=== PATIENT | female | born 1940 | race Caucasian/White ===

== ENCOUNTER 2017-10-02 21:51 | Observation (INO) | payer MEDICARE, OTHER ==
[2017-10-02 22:59] LABS: Troponin I 0.025 ng/mL (< 0.028)
[2017-10-03 01:54] LABS: Troponin I 0.026 ng/mL (< 0.028)
[2017-10-03] MEDS ORDERED: Morphine 4 MG/ML VIAL ONE (02:04)
--- NOTE | 2017-10-03 03:23 | HP ---
DATE OF ADMISSION: 10/03/2017 ADMITTING PHYSICIAN: Dr. Sean Flanagan. PRIMARY CARE PHYSICIAN: Dr. Crenshaw. CHIEF COMPLAINT: Chest pain. HISTORY OF PRESENT ILLNESS: The patient is a 77-year-old female with history of symptomatic bradycar charles, who presents complaining of midsternal chest pain that radiates to her back and left neck and sh oulder. The patient reports that she had a pacemaker placed last Monday. She was treated with as pirin, Ativan, and morphine and the pain has subsided. She does report diaphoresis, but denies nause a and vomiting. REVIEW OF SYSTEMS: The following complete review of systems was negative, unless otherwise mentioned in the HPI or below: Constitutional: Weight loss or gain, sense of well-being, ability to conduct usual activities, exerc ise tolerance. Skin/Breast: Rash, itching, changes in hair growth or loss, nail changes, breast lumps, tenderness, swelling, nipple discharge. Eyes: Vision, double vision, tearing, blind spots, pain. ENT/Mouth: Headaches (location, time of onset, duration, precipitating factors), vertigo, lightheade dness, injury. Vision, double vision, tearing, blind spots, pain, nose bleeding, colds, obstruction, discharge, dental difficulties, gingival bleeding, dentures, neck stiffness, pain, tenderness, masses in thyroid or other areas. Cardiovascular: Precordial pain, substernal distress, palpitations, syncope, dyspnea on exertion, or thopnea, nocturnal paroxysmal dyspnea, edema, cyanosis, hypertension, heart murmurs, varicosities, ph lebitis, claudication. Respiratory: Pain, shortness of breath, wheezing, stridor, cough, hemoptysis, fever or night sweats. Gastrointestinal: Poor appetite, dysphagia, indigestion, abdominal pain, heartburn, eructation, naus ea, vomiting, hematemesis, jaundice, constipation, or diarrhea, abnormal stools (connor-colored, tarry, bloody, greasy, foul smelling), flatulence, hemorrhoids, recent changes in bowel habits. Genitourinary: Urgency, frequency, dysuria, nocturia, hematuria, polyuria, oliguria, unusual (or johnnie nge in) color of urine, stones, hesitancy, change in size of stream, dribbling, acute retention or in continence, libido, potency. Musculoskeletal: Pain, swelling, redness or heat of muscles or joints, limitation, of motion, muscul ar weakness, atrophy, cramps. Neurologic/Psychiatric: Convulsions, paralyses, tremor, incoordination, paresthesias, difficulties w ith memory of speech, sensory or motor disturbances, or muscular coordination (ataxia, tremor), emoti onal problems, anxiety, depression, previous psychiatric care, unusual perceptions, hallucinations. Allergy/Immunologic: Skin rash, anemia, bleeding tendency, polydipsia, polyuria, intolerance to heat or cold. PAST MEDICAL HISTORY: Hypertension and bradycardia. PAST SURGICAL HISTORY: Appendectomy, cholecystectomy, hysterectomy, mastectomy of the left breast, s zaid surgery, total hip replacement, right knee replacement, pacemaker placement. SOCIAL HISTORY: Denies alcohol or drugs. She does smoke. FAMILY HISTORY: Reviewed, positive for hypertension. HOME MEDICATIONS: Gabapentin 300 mg b.i.d., lisinopril 20 mg q. day. DRUG ALLERGIES: SULFA DRUGS. PHYSICAL EXAMINATION: VITAL SIGNS: Temperature of 99.4, pulse 67, blood pressure 129/54, satting 96% on 2 liters, breathin g 23 times per minute. GENERAL: She is in no acute distress, pleasant and cooperative. HEAD: Normocephalic, atraumatic. EYES: PERRL. Extraocular muscles are intact. No nystagmus. ENT: No nasal deformity. No external ear problems. NECK: Supple, full range of motion. Trachea is midline. CHEST: No rhonchi, no wheezing. Clear to auscultation. CARDIAC: Regular rate and rhythm. No gallops. She does have a systolic ejection murmur. ABDOMEN: Nontender, nondistended. Positive bowel sounds. EXTREMITIES: No clubbing, cyanosis or edema. LABORATORY DATA AND IMAGES: CK-MB of 1.9, troponin I of 0.025. Chem-7 and CBC are pending from our facility at this time. ASSESSMENT: 1. Chest pain, rule out an acute coronary syndrome. 2. Hypertension. 3. History of bradycardia with pacemaker placement. PLAN: The patient will be admitted to telemetry observation. We will continue to rule out for ACS b y biomarkers. In light of her history of a new pacemaker placement, we will have her assessed by Car diology. DVT prophylaxis with Lovenox. We will control her blood pressure with her home regimen and make adjustments accordingly.
[2017-10-03 04:40] LABS: #Eosinphils 0.1 thou/uL (0.0-0.7); #Lymphocytes 1.6 thou/uL (1.20-3.40); #Neutrophils 7.4 thou/uL (1.40-6.50); %Basophils 0.2 % (0.0-1.0); %Eosinophils 1.3 % (0.0-10.0); %Lymphocytes 15.4 % (21.0-51.0); %Monocytes 9.7 % (0.0-10.0); Hematocrit 42.6 % (36.0-47.0); Mean Platelet Volume 8.3 fL (7.4-10.4); Red Blood Cell (RBC) Count 4.73 mill/uL (4.20-5.40); White Blood Cell (WBC) Count 10.1 thou/uL (4.8-10.8)
[2017-10-03 04:57] LABS: Troponin I 0.024 ng/mL (< 0.028)
[2017-10-03 04:58] LABS: ALT (SGPT) 23 U/L (8-55); AST (SGOT) 18 U/L (5-34); Alkaline Phosphatase 38 U/L (40-150); Anion Gap 12 mmol/L (10-20); BUN (Urea Nitrogen) 17 mg/dL (9.8-20.1); Bilirubin, Total 0.7 mg/dL (0.2-1.2); Calc. Creatinine Clearance 0 mL/min (70-130); Carbon Dioxide 26 mmol/L (23-31); Chloride 104 mmol/L (98-107); Estimated GFR-MDRD 53; Globulin 2.4 g/dL (2.4-3.5); Protein, Total 6.4 g/dL (6.0-8.3)
[2017-10-03 05:45] LABS: Band 3 % (5-11); Hematocrit 41.9 % (36.0-47.0); Mean Platelet Volume 8.3 fL (7.4-10.4); Myelocyte 2 % (0-0); Neutrophil 69 % (42-75); Red Blood Cell (RBC) Count 4.65 mill/uL (4.20-5.40); White Blood Cell (WBC) Count 9.9 thou/uL (4.8-10.8)
[2017-10-03] MEDS ORDERED: Enoxaparin Sodium 40 MG/0.4 ML SYRINGE SC SCH (09:00)
[2017-10-03 13:03] VITALS: BMI 33.1
--- NOTE | 2017-10-03 15:27 | CON ---
DATE OF CONSULTATION: 10/03/2017 REASON FOR CONSULTATION: Chest pain, recent pacemaker insertion. HISTORY OF PRESENT ILLNESS: Chip is a 77-year-old woman. She recently presented for routine followu p with her oncologist and was found to have a heart rate in the 30s. She apparently was asymptomatic . She was sent to the hospital where she was found to have severe bradycardia. Dual-chamber pacemak er was placed last Monday according to the patient. The patient states she felt well following at until yesterday she had the onset of severe substernal pain that went straight through to her back . The pain was worse when she took a deep breath. The pain has been consistent since then, but hurt s worse when she tries to get a breath. She has never had pain like that before. She has not had an y previous significant chest pain. PAST MEDICAL HISTORY: She has a history of breast cancer many years ago, and had a left-sided mastec finn. She was going for routine followup recently when she was found to have a low heart rate. Jennifer ent is currently still having some chest pain when she takes a breath. REVIEW OF SYSTEMS: Constitutional: No significant weight gain or loss. Vision: No changes. Heari ng: No changes. Pulmonary: No cough or wheezing. Gastrointestinal: No nausea, vomiting, diarrhea . Skin: No rashes. Neurologic: No unilateral weakness or numbness. Psychiatric: No unusual depr ession or anxiety. Hematologic: No unusual bruising. Genitourinary: No burning with urination. M usculoskeletal: No unusual joint pains. PAST MEDICAL HISTORY: Breast cancer in the remote past as mentioned. PAST SURGICAL HISTORY: Mastectomy, left breast. SOCIAL HISTORY: No alcohol. She does smoke. FAMILY HISTORY: Positive for hypertension. MEDICATIONS: Gabapentin and lisinopril. ALLERGIES: SULFA. PHYSICAL EXAMINATION: GENERAL: This is a pleasant 77-year-old woman, resting comfortably in no distress. VITAL SIGNS: Blood pressure 132/60, pulse 70. HEENT: Sclerae nonicteric. Mouth mucous membranes moist. NECK: Supple, no lymphadenopathy. LUNGS: Clear. No wheezing, rales or rhonchi. CARDIAC: Normal S1, normal S2. There is no murmur, rub, or gallop. ABDOMEN: Soft, nontender, no hepatosplenomegaly. EXTREMITIES: Warm and dry. No clubbing, no cyanosis or edema. Peripheral pulses are intact. SKIN: Warm and dry. PSYCHIATRIC: Mood and affect normal. NEUROLOGIC: Grossly normal. PULSES: Normal in the feet. LABORATORY AND X-RAY FINDINGS: EKG reveals atrial sensed ventricular paced rhythm. Echocardiogram s howed normal left ventricular function with a very small amount of pericardial effusion, trivial amou nt of pericardial fluid, no tamponade. Troponin level of 0.025. ASSESSMENT: 1. Recent pacemaker insertion, apparently for atrioventricular block. 2. Chest pain, has more of a pericardial/pleuritic complement, ? related to lead placement versus mi croperforation? versus anginal pain. PLAN: 1. We have requested pacemaker check to check the thresholds. 2. May need cardiac catheterization to see if she does or does not have obstructive coronary disease . 3. We will consult Electrophysiology.
[2017-10-03] MEDS ORDERED: Ondansetron ODT 4 MG TAB PO PRN (16:58)
[2017-10-03] MEDS ORDERED: Ondansetron HCl/PF 4 MG/2 ML Vial SLOW IVP PRN (16:59)
[2017-10-03] MEDS: Gabapentin 300 MG CAP PO SCH (20:57)
[2017-10-04] MEDS: Gabapentin 300 MG CAP PO SCH (07:41)
[2017-10-04] MEDS ORDERED: Nitroglycerin 0.4 MG TAB (25 Tab Bottle) SL PRN ×2 (07:54→09:23)
[2017-10-04] MEDS ORDERED: traMADol HCl 50 MG TAB PO PRN ×2 (07:54→09:23)
[2017-10-04] MEDS ORDERED: Acetaminophen/Codeine 30-300mg Tablet PO PRN ×4 (07:54→09:23)
[2017-10-04] MEDS ORDERED: Diazepam 5 MG TAB PO SCH (08:00)
[2017-10-04] MEDS ORDERED: Sodium Chloride 0.9% 1,000 ML IV SCH (08:00)
[2017-10-04] MEDS ORDERED: Sodium Chloride 0.9% 200 ML IV SCH ×2 (08:00→09:30)
[2017-10-04] MEDS ORDERED: Midazolam HCl 2 mg/2 ml Vial ONE (08:49)
[2017-10-04] MEDS ORDERED: Fentanyl 100 MCG/2 ML VIAL ONE (08:49)
[2017-10-04] MEDS ORDERED: Lisinopril 20 MG TAB PO SCH (09:00)
[2017-10-04] MEDS ORDERED: Metoprolol Tartrate 5 MG/5 ML VIAL ONE (09:21)
[2017-10-04 11:58] VITALS: BP 113/58; TEMP 98.1
--- NOTE | 2017-10-04 13:59 | PRG ---
DATE OF SERVICE: 10/04/2017 Ms. Saunders underwent cardiac catheterization. She was found to have minimal coronary disease, 10% plaq ues. She is currently doing well and feeling well. The patient's troponin levels yesterday were ind eterminate. I suspect she had some pericardial type pain following pacemaker insertion. The thresho lds are good. The left ventricular function is good. She will follow up with her primary care physi jay. 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
[2017-10-04] MEDS ORDERED: Iopamidol 370 76% 100 ML VIAL ONE (15:42)
[2017-10-04] MEDS ORDERED: Simvastatin 5 MG TAB PO SCH (21:00)
== END 2017-10-04 15:13 | disposition home or self-care (01) ==
LOC: ERS 21:51 → ERHOLD 10-03 00:46 → 2SW 10-03 12:19
PROVIDERS: ADMIT Internal Medicine Addiction Medicine; ATTEND Internal Medicine Addiction Medicine
DX: R07.2 Precordial pain (principal); I10 Essential (primary) hypertension; F17.200 Nicotine dependence, unspecified, uncomplicated; Z88.2 Allergy status to sulfonamides; Z79.899 Other long term (current) drug therapy; Z90.49 Acquired absence of other specified parts of digestive tract; Z90.710 Acquired absence of both cervix and uterus; Z90.12 Acquired absence of left breast and nipple; Z96.649 Presence of unspecified artificial hip joint; Z96.651 Presence of right artificial knee joint; Z95.0 Presence of cardiac pacemaker; Z98.890 Other specified postprocedural states
CPT/HCPCS: 76942; 80053; 82553; 84484 ×3; 85007; 85025; 85027; 93005; 93306; 93458; 94760 ×3; 96372; 96374; 99285; 99406; C1769; G0378; 36415; 99152; 99153; J1644; J1650; J2250; J2270; J3010; J7620; Q0162

== ENCOUNTER 2022-09-02 06:48 | Day surgery (SDC) | payer MEDICARE ==
[2022-09-01 07:43] VITALS: BMI 30.9
[~2022-09-02 06:48] MED LIST: FLU VACC QS2022-23(65YR UP)/PF 240 MCG/0.7 ML SYRINGE IM ONE
[2022-09-02 08:08] VITALS: BP 164/73; TEMP 98.1
[2022-09-02] MEDS ORDERED: Iopamidol-M 300 61% 15 ML VIAL ONE (11:50)
== END 2022-09-02 09:10 | disposition home or self-care (01) ==
LOC: RAD 06:48
PROVIDERS: ATTEND Physical Medicine & Rehabilitation
PROC: B01B1ZZ Fluoroscopy of Spinal Cord using Low Osmolar Contrast (ICD-10-PCS; principal; 2022-09-02)
DX: M50.31 Other cervical disc degeneration, high cervical region (principal); M50.21 Other cervical disc displacement, high cervical region; M47.812 Spondylosis without myelopathy or radiculopathy, cervical region; M51.15 Intervertebral disc disorders with radiculopathy, thoracolumbar region; M47.25 Other spondylosis with radiculopathy, thoracolumbar region; M48.05 Spinal stenosis, thoracolumbar region; M51.16 Intervertebral disc disorders with radiculopathy, lumbar region; M47.26 Other spondylosis with radiculopathy, lumbar region; M48.061 Spinal stenosis, lumbar region without neurogenic claudication; M51.37 Other intervertebral disc degeneration, lumbosacral region; M47.817 Spondylosis without myelopathy or radiculopathy, lumbosacral region; Z79.899 Other long term (current) drug therapy; Z88.2 Allergy status to sulfonamides
CPT/HCPCS: 62305; 72126; 72129; 72132; Q9967